=== PATIENT | male | born 1985 | race Caucasian/White ===

== ENCOUNTER 2017-03-14 14:25 | Outpatient (CLI) | payer MEDICAID ==
[2017-03-14 19:10] LABS: BASOPHILS # (AUTO) 0.1 10^3/uL (0.0-0.1); BASOPHILS % (AUTO) 0.6 %; EOSINOPHILS # (AUTO) 0.3 10^3/uL (0.0-0.7); EOSINOPHILS % (AUTO) 2.7 %; HCT - HEMATOCRIT 45.4 % (42.0-52.0); HGB - HEMOGLOBIN 15.5 g/dL (14.0-18.0); LYMPHOCYTES # (AUTO) 3.2 10^3/uL (1.5-3.5); LYMPHOCYTES % (AUTO) 30.5 %; MEAN CORPUSCULAR HEMOGLOBIN 29.9 pg (27.0-31.0); MEAN CORPUSCULAR VOLUME 87.9 fL (80.0-94.0); MEAN PLATELET VOLUME 9.3 fL (7.4-11.4); MONOCYTES # (AUTO) 0.8 10^3/uL (0.0-1.0); NEUTROPHILS % (AUTO) 58.2 %; NUCLEATED RED BLOOD CELLS AUTO 0.1 /100WBC; RED BLOOD COUNT 5.17 10^6/uL (4.70-6.10); RED CELL DISTRIBUTION WIDTH 12.8 % (12.0-15.0); UNCORRECTED WHITE BLOOD COUNT 10.4 x10^3/uL; WHITE BLOOD COUNT 10.4 x10^3/uL (4.8-10.8)
[2017-03-14 19:36] LABS: ALBUMIN/GLOBULIN RATIO 1.6 (1.0-2.2); BILIRUBIN,TOTAL 0.9 mg/dL (0.2-1.0); BUN - BLOOD UREA NITROGEN 12 mg/dL (6-20); CALCIUM 9.4 mg/dL (8.5-10.3); CARBON DIOXIDE - CO2 28 mmol/L (21-32); CHLORIDE 99 mmol/L (101-111); CHOL/HDL RATIO 6.3 (<5.0); CHOLESTEROL 232 mg/dL; CREATININE 0.8 mg/dL (0.6-1.2); GFR - MDRD 112 (>89); GLUCOSE 126 mg/dL (70-100); HDL CHOLESTEROL 37 mg/dL; LDL/HDL RATIO 3.4 (<3.6); POTASSIUM 3.8 mmol/L (3.5-5.0); SODIUM 136 mmol/L (135-145); TOTAL PROTEIN 7.4 g/dL (6.7-8.2); TRIGLYCERIDES 347 mg/dL; VLDL CHOLESTEROL 69 mg/dL
[2017-03-14 19:55] LABS: BILIRUBIN,URINE NEGATIVE (NEGATIVE)
[2017-03-14 19:57] LABS: HEMOGLOBIN A1C 0.97 g/dL
[2017-03-14 21:21] LABS: WBC,URINE 0-3 /HPF (0-3)
[2017-03-14 21:22] LABS: UR CULTURE IF IND NOT INDICATED
== END 2017-03-14 14:26 | disposition home or self-care (01) ==
LOC: LAB.F 14:25
PROVIDERS: ATTEND Internal Medicine
DX: E11.9 Type 2 diabetes mellitus without complications (principal)
CPT/HCPCS: 36415; 80053; 80061; 81001; 82043; 82570; 83036; 84443; 85025; 87086

== ENCOUNTER 2017-03-15 16:40 | Emergency (ER) | payer MEDICAID ==
[2017-03-15] MEDS ORDERED: oxyCOD/ACETAMIN 5 MG/325 MG TABLET PO STA ×2 (17:39→19:13)
[2017-03-15] MEDS ORDERED: ONDANSETRON ODT 4 MG TABLET TL STA (17:39)
[2017-03-15] MEDS ORDERED: oxyCOD/ACETAMIN 5 MG/325 MG TABLET PO ONE ×2 (17:43→19:15)
[2017-03-15] MEDS ORDERED: ONDANSETRON ODT 4 MG TABLET ONE (17:43)
[2017-03-15 17:47] LABS: BILIRUBIN,URINE NEGATIVE (NEGATIVE); UA CHARGE (STRIP ONLY) YES; UR CULTURE IF IND NOT INDICATED
--- NOTE | 2017-03-15 18:54 | CT Preliminary Report ---
Exam: CT KUB IMPRESSION: 1. Right sided ureterovesicular junction calculus measuring 4 x 3 mm versus this is free in the [facility]. No hydronephrosis or hydroureter. 2. Normal appendix. [facility] SITE ID: [id number]
--- NOTE | 2017-03-15 18:56 | CT Report ---
EXAM: CT ABDOMEN AND PELVIS (CT KUB) EXAM DATE: 03/15/2017 06:04 PM. CLINICAL HISTORY: Right abdomen/flank pain for 6 days. COMPARISONS: None. TECHNIQUE: Routine axial helical CT imaging was performed through the abdomen and pelvis without IV c ontrast. Reconstructions: Coronal and sagittal. In accordance with CT protocol optimization, one or more of the following dose reduction techniques w ere utilized for this exam: automated exposure control, adjustment of mA and/or KV based on patient s ize, or use of iterative reconstructive technique. FINDINGS: Lung Bases: Unremarkable. Right Kidney/Ureter: No hydronephrosis or hydroureter. No renal calculi. See below. No perinephric fa t stranding. Left Kidney/Ureter: No stones, hydronephrosis, or hydroureter. No perinephric fat stranding. Other Solid Organs: Noncontrast images of the solid organs are grossly unremarkable. Gallbladder/Bile Ducts: Unremarkable. Peritoneal Cavity: No free fluid, free air or corine adenopathy. Bowel is grossly unremarkable. Pelvic Organs: Right sided ureterovesicular junction calculus measuring 4 x 3 mm versus this is free in the bladder. Vasculature: Unremarkable. No acute bone findings. IMPRESSION: 1. Right sided ureterovesicular junction calculus measuring 4 x 3 mm versus this is free in the bl[place] er. No hydronephrosis or hydroureter. 2. Normal appendix. [facility] Referring Provider Line: [phone] SITE ID: [id number]
[2017-03-15] MEDS ORDERED: NAPROXEN 250 MG TABLET PO STA (19:13)
[2017-03-15] MEDS ORDERED: TAMSULOSIN 0.4 MG CAPSULE PO STA (19:13)
[2017-03-15] MEDS ORDERED: DEXAMETHASONE 10 MG/ML VIAL PO STA (19:13)
[2017-03-15] MEDS ORDERED: NAPROXEN 250 MG TABLET PO ONE (19:15)
[2017-03-15] MEDS ORDERED: DEXAMETHASONE 10 MG/ML VIAL ONE (19:15)
[2017-03-15] MEDS ORDERED: TAMSULOSIN 0.4 MG CAPSULE ONE (19:15)
--- NOTE | 2017-03-15 19:31 | ED Physician Documentation ---
PD HPI ABD PAIN - Stated complaint Stated Complaint: MALE - Chief complaint Chief Complaint: General - History obtained from History obtained from: Patient - History of Present Illness Timing - duration: Days (4-5) Timing - details: Abrupt onset, Still present (worsened significantly today and has been persistent for hours.), Intermittant Quality: Aching, Pain Location: RLQ (initially right flank intermittently and then moved to lower abd and back too.) Radiation: Right flank Improved by: No: Eating, Laying still, Position Worsened by: No: Eating, Moving, Position Associated symptoms: Nausea. No: Fever, Vomiting, Diarrhea, Dysuria, Hematuria , Near syncope / syncope Similar symptoms before: Has not had sx before Recently seen: Not recently seen Review of Systems Constitutional: denies: Fever, Chills Nose: denies: Rhinorrhea / runny nose, Congestion Throat: denies: Sore throat Respiratory: denies: Cough GI: reports: Abdominal Pain, Nausea. denies: Vomiting, Diarrhea : denies: Dysuria, Frequency Skin: denies: Rash Musculoskeletal: reports: Back pain (right flank) PD PAST MEDICAL HISTORY - Past Medical History Past Medical History: Yes Cardiovascular: None Respiratory: None Neuro: None Endocrine/Autoimmune: None, Type 2 diabetes GI: None : None - Past Surgical History Past Surgical History: No - Present Medications Home Medications: Ambulatory Orders Medication Instructions Recorded Confirmed Naproxen [Naprosyn] 500 mg PO BID PRN #20 tablet 03/15/17 Ondansetron Odt [Zofran] 4 mg TL Q6H PRN #15 tablet 03/15/17 Oxycodone HCl/Acetaminophen 1 each PO Q6H PRN #20 tablet 03/15/17 [Percocet 5-325 mg Tablet] Tamsulosin [Flomax] 0.4 mg PO DAILY #5 capsule 03/15/17 - Allergies Allergies/Adverse Reactions: Allergies Allergy/AdvReac Type Severity Reaction Status Date / Time No Known Drug Allergies Allergy Verified 03/15/17 16:46 - Social History Does the pt smoke?: No Smoking Status: Never smoker Does the pt drink ETOH?: No Does the pt have substance abuse?: No PD ED PE NORMAL - Vitals Vital signs reviewed: Yes - General General: Alert and oriented X 3, Well developed/nourished, Other (appears in pain) - Neck Neck: Supple, no meningeal sign, No adenopathy - Cardiac Cardiac: RRR, No murmur - Respiratory Respiratory: Clear bilaterally - Abdomen Abdomen: Normal bowel sounds, Soft, Non distended, No organomegaly, Other (mild tender RLQ but no guarding nor percussion tenderness. ) - Male Male : Other (no hernia nor testicular tenderness. ) - Rectal Rectal: Deferred - Back Back: No spinal TTP, Other (rigth CVA tenderness moderate) - Derm Derm: Normal color, Warm and dry, No rash - Extremities Extremities: No deformity, No tenderness to palpate - Neuro Neuro: Alert and oriented X 3, No motor deficit, Normal speech Results - Vitals Vitals: Oxygen O2 Source Room air - Labs Labs: Laboratory Tests 03/15/17 17:02 Urine Color YELLOW Urine Clarity CLEAR Urine pH 6.0 Ur Specific [place] 1.025 Urine Protein NEGATIVE Urine Glucose (UA) 500 H Urine Ketones NEGATIVE Urine Occult Blood NEGATIVE Urine Nitrite NEGATIVE Urine Bilirubin NEGATIVE Urine Urobilinogen 0.2 (NORMAL) Ur Leukocyte Esterase NEGATIVE Ur Microscopic Review NOT INDICATED Urine Culture Comments NOT INDICATED - Rads (name of study) KUB CT Radiology: Prelim report reviewed, EMP read contemporaneously PD MEDICAL DECISION MAKING - ED course Complexity details: re-evaluated patient (feeling much improved with IV meds. Feels able to go home. Explained about stone treatment.), considered differential, d/w patient Departure - Departure Disposition: 01 Home, Self Care Clinical Impression: Ureterolithiasis Condition: Stable Record reviewed to determine appropriate education?: Yes Instructions: ED Stone Renal W Colic Follow-Up: [facility] [Provider Group] Prescriptions: Tamsulosin [Flomax] 0.4 mg PO DAILY #5 capsule Naproxen [Naprosyn] 500 mg PO BID PRN #20 tablet PRN Reason: Pain Oxycodone HCl/Acetaminophen [Percocet 5-325 mg Tablet] 1 each PO Q6H PRN #20 tablet PRN Reason: Pain Ondansetron Odt [Zofran] 4 mg TL Q6H PRN #15 tablet PRN Reason: Nausea / Vomiting Comments: Drink adequate fluids. Naproxen twice daily for inflammation and Tamsulosin daily to help ureter muscle to relax. Percocet 1-2 every 4 hours if needed for pain. Zofran if needed for nausea. Call Urology group in [place] tomorrow and get recommendation from them on timing of followup, if the stone doesn't pass. Discharge Date/Time: 03/15/17 19:38
[2017-03-15 19:38] VITALS: BP 140/85
== END 2017-03-15 19:38 | disposition home or self-care (01) ==
LOC: ED 16:40
DX: N20.1 Calculus of ureter (principal); E11.9 Type 2 diabetes mellitus without complications
CPT/HCPCS: 74176; 81003; 99283; A9270; Q0162; 81001; 87086

== ENCOUNTER 2017-10-11 10:20 | Outpatient (CLI) | payer MEDICAID ==
[2017-10-11 17:24] LABS: BASOPHILS % (AUTO) 0.5 %; EOSINOPHILS # (AUTO) 0.3 10^3/uL (0.0-0.7); EOSINOPHILS % (AUTO) 3.3 %; HGB - HEMOGLOBIN 15.2 g/dL (14.0-18.0); LYMPHOCYTES # (AUTO) 2.6 10^3/uL (1.5-3.5); LYMPHOCYTES % (AUTO) 28.6 %; MEAN CORPUSCULAR HEMOGLOBIN 29.9 pg (27.0-31.0); MEAN CORPUSCULAR HGB CONC 33.1 g/dL (32.0-36.0); MEAN CORPUSCULAR VOLUME 90.4 fL (80.0-94.0); MEAN PLATELET VOLUME 9.6 fL (7.4-11.4); MONOCYTES # (AUTO) 0.8 10^3/uL (0.0-1.0); MONOCYTES % (AUTO) 8.5 %; NEUTROPHILS # (AUTO) 5.3 10^3/uL (1.5-6.6); NEUTROPHILS % (AUTO) 59.1 %; PLT - PLATELET COUNT 266 10^3/uL (130-450); RED BLOOD COUNT 5.09 10^6/uL (4.70-6.10); RED CELL DISTRIBUTION WIDTH 13.4 % (12.0-15.0); WHITE BLOOD COUNT 8.9 x10^3/uL (4.8-10.8)
[2017-10-11 17:56] LABS: HB2 TOTAL 16.6 g/dL; HEMOGLOBIN A1C 1.05 g/dL; HEMOGLOBIN A1C % 7.9 % (4.6-6.2)
[2017-10-11 18:50] LABS: ALBUMIN 4.4 g/dL (3.2-5.5); ALBUMIN/GLOBULIN RATIO 1.6 (1.0-2.2); ALKALINE PHOSPHATASE 64 IU/L (42-121); ALT ALANINE AMINOTRANSFERASE 46 IU/L (10-60); AST ASPARTATE AMINOTRANSFERASE 22 IU/L (10-42); BILIRUBIN,TOTAL 0.9 mg/dL (0.2-1.0); BUN - BLOOD UREA NITROGEN 16 mg/dL (6-20); CALCIUM 9.3 mg/dL (8.5-10.3); CARBON DIOXIDE - CO2 26 mmol/L (21-32); CHLORIDE 101 mmol/L (101-111); CHOL/HDL RATIO 5.5 (<5.0); CHOLESTEROL 209 mg/dL; CREATININE 0.8 mg/dL (0.6-1.2); GFR - MDRD 112 (>89); GLUCOSE 226 mg/dL (70-100); HDL CHOLESTEROL 38 mg/dL; LDL CHOLESTEROL,CALCULATED 121 mg/dL; LDL/HDL RATIO 3.2 (<3.6); SODIUM 135 mmol/L (135-145); TOTAL PROTEIN 7.2 g/dL (6.7-8.2); VLDL CHOLESTEROL 50 mg/dL
== END 2017-10-11 10:21 | disposition home or self-care (01) ==
LOC: LAB.F 10:20
PROVIDERS: ATTEND Physician Assistant Medical
DX: Z00.00 Encounter for general adult medical examination without abnormal findings (principal); Z51.81 Encounter for therapeutic drug level monitoring; E11.9 Type 2 diabetes mellitus without complications
CPT/HCPCS: 36415; 80053; 80061; 83036; 83721; 85025

== ENCOUNTER 2018-03-16 18:48 | Emergency (ER) | payer MEDICAID ==
[2018-03-16 18:54] VITALS: BP 145/94
[2018-03-16 20:47] LABS: BASOPHILS # (AUTO) 0.1 10^3/uL (0.0-0.1); BASOPHILS % (AUTO) 0.9 %; EOSINOPHILS # (AUTO) 0.5 10^3/uL (0.0-0.7); EOSINOPHILS % (AUTO) 5.7 %; HGB - HEMOGLOBIN 14.6 g/dL (14.0-18.0); LYMPHOCYTES # (AUTO) 3.5 10^3/uL (1.5-3.5); LYMPHOCYTES % (AUTO) 36.5 %; MEAN CORPUSCULAR HEMOGLOBIN 32.1 pg (27.0-31.0); MEAN CORPUSCULAR HGB CONC 36.1 g/dL (32.0-36.0); MEAN CORPUSCULAR VOLUME 88.8 fL (80.0-94.0); MEAN PLATELET VOLUME 8.2 fL (7.4-11.4); MONOCYTES # (AUTO) 0.7 10^3/uL (0.0-1.0); MONOCYTES % (AUTO) 7.1 %; NEUTROPHILS # (AUTO) 4.8 10^3/uL (1.5-6.6); NEUTROPHILS % (AUTO) 49.8 %; PLT - PLATELET COUNT 317 10^3/uL (130-450); RED BLOOD COUNT 4.55 10^6/uL (4.70-6.10); RED CELL DISTRIBUTION WIDTH 12.7 % (12.0-15.0); WHITE BLOOD COUNT 9.6 x10^3/uL (4.8-10.8)
[2018-03-16 20:58] LABS: ALBUMIN 4.5 g/dL (3.2-5.5); ALBUMIN/GLOBULIN RATIO 1.7 (1.0-2.2); BILIRUBIN,TOTAL 0.2 mg/dL (0.2-1.0); CALCIUM 9.2 mg/dL (8.5-10.3); CREATININE 0.8 mg/dL (0.6-1.2); TOTAL PROTEIN 7.1 g/dL (6.7-8.2)
[2018-03-16] MEDS ORDERED: AMOX/CLAV 875 MG/125 MG TABLET PO STA (21:07)
[2018-03-16] MEDS ORDERED: DEXAMETHASONE 10 MG/ML VIAL PO STA (21:07)
--- NOTE | 2018-03-16 21:11 | ED Physician Documentation ---
PD HPI HEENT - Stated complaint Stated Complaint: BODY PX - Chief complaint Chief Complaint: General - History obtained from History obtained from: Patient, Family - History of Present Illness Timing - onset: How many weeks ago (4) Timing - details: Gradual onset, Still present Location: Right ear, Left ear, Throat Associated symptoms: Swollen nodes, Facial swelling. No: Fever Similar symptoms before: Work up / diagnostics, Treatment Recently seen: Clinic - Additional information Additional information: Patient is a 32 year old male with a history of diabetes who is presenting to the emergency department for intermittent facial swelling. patient states that it has been going on for almost 4 weeks. Patient states that he saw his doctor who started him on clindamycin for possible infection. patient states that it got better for awhile. During that time patient did not take any insulin and his blood sugars were normal or even low. patient states that for the last couple of weeks patient has had intermittent ear pain, sometimes throat pain, or tooth pain. patient states that sometimes he feels like his throat gets swollen. Review of Systems Constitutional: denies: Fever, Chills Eyes: reports: Reviewed and negative Nose: denies: Rhinorrhea / runny nose, Congestion Throat: reports: Dental pain / toothache, Sore throat, Swollen tonsils Cardiac: denies: Chest pain / pressure, Palpitations Respiratory: denies: Dyspnea, Cough Skin: denies: Rash, Lesions Musculoskeletal: reports: Neck pain Immunocompromised: denies: Immunocompromised PD PAST MEDICAL HISTORY - Past Medical History Past Medical History: Yes Cardiovascular: None Respiratory: None Endocrine/Autoimmune: None, Type 2 diabetes GI: None : None - Past Surgical History Past Surgical History: No - Present Medications Home Medications: Ambulatory Orders Medication Instructions Recorded Confirmed Amox/Clav 875/125 [Augmentin] 1 each PO Q12H #14 tablet 03/16/18 Chlorhexidine Gluconate 15 ml MM Q6HR #1 mouthwash 03/16/18 - Allergies Allergies/Adverse Reactions: Allergies Allergy/AdvReac Type Severity Reaction Status Date / Time No Known Drug Allergies Allergy Verified 03/16/18 18:53 - Social History Does the pt smoke?: No Smoking Status: Never smoker Does the pt drink ETOH?: No Does the pt have substance abuse?: No - Immunizations Immunizations are current?: Yes - POLST Patient has POLST: No PD ED PE NORMAL - Vitals Vital signs reviewed: Yes - General General: Alert and oriented X 3, No acute distress, Well developed/nourished - HEENT HEENT: Atraumatic, PERRL, Moist mucous membranes, Pharynx benign - Neck Neck: Supple, no meningeal sign, No adenopathy - Cardiac Cardiac: RRR - Respiratory Respiratory: No respiratory distress - Derm Derm: Normal color, No rash - Extremities Extremities: No deformity - Neuro Neuro: Alert and oriented X 3 Eye Opening: Spontaneous Motor: Obeys Commands Verbal: Oriented GCS Score: 15 - Psych Psych: Normal mood PD ED PE EXPANDED - HEENT HEENT: Pharynx normal, Dental decay, Dental TTP. No: Pharyngeal erythema, Swollen tonsils, Tonsillar exudate, Soft palate petecchiae, [employer], Dental abscess Results - Vitals Vitals: Vital Signs - 24 hr 03/16/18 18:51 Temperature 36.2 C L Heart Rate 67 Respiratory 16 Rate Blood Pressure 145/94 H O2 Saturation 100 Oxygen O2 Source Room air - Labs Labs: Laboratory Tests 03/16/18 03/16/18 20:38 20:38 WBC 9.6 RBC 4.55 L Hgb 14.6 Hct 40.4 L MCV 88.8 MCH 32.1 H MCHC 36.1 H RDW 12.7 Plt Count 317 MPV 8.2 Neut # (Auto) 4.8 Lymph # (Auto) 3.5 Edwards # (Auto) 0.7 Eos # (Auto) 0.5 Baso # (Auto) 0.1 Absolute Nucleated RBC 0.00 Nucleated RBC % 0.0 Sodium 134 L Potassium 3.5 Chloride 99 L Carbon Dioxide 28 Anion Gap 7.0 BUN 13 Creatinine 0.8 Estimated GFR (MDRD) 111 Glucose 242 H Calcium 9.2 Total Bilirubin 0.2 AST 23 ALT 33 Alkaline Phosphatase 70 Total Protein 7.1 Albumin 4.5 Globulin 2.6 Albumin/Globulin Ratio 1.7 Lipase 27 PD MEDICAL DECISION MAKING - ED course Complexity details: reviewed old records, reviewed results, re-evaluated patient , considered differential, d/w patient, d/w family ED course: Patient was seen and examined at bedside. patient was well appearing and in no distress. Patient had multiple dental caries but no drainable abscess or fluid collection. Patient's labs were all within normal limits. patient was treated with decadron and augmentin. patient required no further inpatient work up at this time and was stable for discharge with outpatient follow up. - Sepsis Event Vital Signs: Vital Signs - 24 hr 03/16/18 18:51 Temperature 36.2 C L Heart Rate 67 Respiratory 16 Rate Blood Pressure 145/94 H O2 Saturation 100 Oxygen O2 Source Room air Departure - Departure Disposition: 01 Home, Self Care Clinical Impression: Pain due to dental caries Condition: Good Instructions: ED Cavity Dental Follow-Up: Lidia Rhodes PA-C [Primary Care Provider] - Prescriptions: Chlorhexidine Gluconate 15 ml MM Q6HR #1 mouthwash Amox/Clav 875/125 [Augmentin] 1 each PO Q12H #14 tablet Comments: Your diagnostics today were within normal limits. You have been treated with a steroid to help with inflammation and started on an antibiotic and an antibiotic rinse. Ultimately you need to follow up with a dentist to get your teeth pulled. You may return to the emergency department at any time for new, worsening or uncontrollable symptoms. Discharge Date/Time: 03/16/18 21:15
== END 2018-03-16 21:15 | disposition home or self-care (01) ==
LOC: ED 18:48
DX: K08.89 Other specified disorders of teeth and supporting structures (principal); K02.9 Dental caries, unspecified; E11.9 Type 2 diabetes mellitus without complications
CPT/HCPCS: 36415; 80053; 83690; 85025; 99283; A9270